=== PATIENT | male | born 1965 | race Caucasian/White ===

== ENCOUNTER 2019-01-31 12:27 | Emergency (ER) | payer MEDICAID ==
[~2019-01-31] VITALS: Ht 182.9 cm; Wt 78.5 kg
[2019-01-31 12:32] VITALS: BP 114/76
--- NOTE | 2019-01-31 23:34 | NUR ---
Patient given written and verbal discharge instructions. Patient verbalizes understanding of instructions. Patient is ambulatory with steady gait. Refuses offer of care home placement. Patient given list of available shelters in surrounding area.Pt ambulatory with a steady gait. Denies SI/HI at this time.
== END 2019-02-01 00:40 | disposition home or self-care (01) ==
LOC: ER 12:29
DX: F10.129 Alcohol abuse with intoxication, unspecified (principal); Y90.9 Presence of alcohol in blood, level not specified

== ENCOUNTER 2019-02-01 02:15 | Emergency (ER) | payer MEDICAID ==
[~2019-02-01] VITALS: Ht 182.9 cm; Wt 74.8 kg
[2019-02-01] MEDS ORDERED: HYDROMORPHONE INJ 2 MG/ML DISP.SYRIN IV ONE (03:00)
[2019-02-01 03:14] LABS: BASOPHILS # (AUTO) 0.1 /CMM (0.0-0.2); BASOPHILS % (AUTO) 0.6 % (0.0-2.0); EOSINOPHILS % (AUTO) 0.5 % (0.0-6.0); HEMATOCRIT 46 % (39-51); LYMPHOCYTES # (AUTO) 1.4 /CMM (0.8-4.8); LYMPHOCYTES % (AUTO) 16.3 % (20.0-44.0); MEAN CORPUSCULAR HGB CONC 33 g/dl (31.0-36.0); MEAN CORPUSCULAR VOLUME 94 fL (80-96); MONOCYTES # (AUTO) 0.3 /CMM (0.1-1.30); MONOCYTES % (AUTO) 3.2 % (2.0-12.0); NEUTROPHILS # (AUTO) 6.8 /CMM (1.8-8.9); NEUTROPHILS % (AUTO) 79.4 % (43.0-81.0); PLATELET COUNT (AUTO) 214 /CMM (150-450); RED BLOOD CELL COUNT(AUTO) 4.84 MIL/uL (4.5-6.0); WHITE BLOOD COUNT (AUTO) 8.5 K/uL (4.3-11.0)
[2019-02-01] MEDS ORDERED: HYDROMORPHONE 1 MG/1 ML DISP.SYRIN ONE (03:15)
[2019-02-01] MEDS ORDERED: WATER FOR INJECTION,STERILE 10 ML ONE (03:15)
[2019-02-01] MEDS ORDERED: PANTOPRAZOLE 40 MG VIAL ONE (03:15)
[2019-02-01] MEDS ORDERED: ONDANSETRON HCL/PF 4 MG/2 ML VIAL ONE (03:15)
[2019-02-01 03:21] LABS: CALCIUM, SERUM 8.1 mg/dL (8.5-10.1); CREATININE 0.8 mg/dL (0.6-1.3); POTASSIUM 3.9 mmol/L (3.5-5.1)
[2019-02-01 03:27] LABS: ALBUMIN 3.6 g/dL (3.4-5.0); BILIRUBIN,DIRECT 0.2 mg/dL (0.0-0.2); BILIRUBIN,TOTAL 0.7 mg/dL (0.2-1.0); TOTAL PROTEIN, SERUM 6.9 g/dL (6.4-8.2)
[2019-02-01] MEDS: IV NS 0.9% 1,000 ML BAG IV ONE (03:30)
[2019-02-01] MEDS: ONDANSETRON HCL/PF 4 MG/2 ML VIAL IVP ONE (03:30)
[2019-02-01] MEDS: PANTOPRAZOLE 40 MG VIAL IV ONE (03:30)
--- NOTE | 2019-02-01 03:30 | NUR ---
BIBSELF. TO ER BED 12. AAOX4. NO RESP DISTRESS NOTED. AMBULATORY. C/O ABDOMINAL PAIN - [place]ARP 01/15. HEADACHE AND NAUSEA. WAS JUST HERE AT THE ER EARLIER. AT BEDSIDE FOR EVAL.
[2019-02-01] MEDS: HYDROMORPHONE 1 MG/1 ML DISP.SYRIN IV ONE (03:32)
[2019-02-01 05:01] VITALS: BP 121/86
[2019-02-01] MEDS ORDERED: ONDANSETRON 4 MG TAB.RAPDIS ONE (05:54)
[2019-02-01] MEDS ORDERED: HYDROCODONE/APAP 5/325MG 1 EACH TABLET ONE (05:55)
[2019-02-01] MEDS: HYDROCODONE/APAP 5/325MG 1 EACH TABLET PO ONE (05:57)
--- NOTE | 2019-02-01 06:54 | NUR ---
Patient given written and verbal discharge instructions. Patient verbalizes understanding of instructions. Patient is ambulatory with steady gait. Refuses offer of retirement placement. Patient given list of available shelters in surrounding area.
== END 2019-02-01 06:57 | disposition home or self-care (01) ==
LOC: ER 02:21
DX: K85.20 Alcohol induced acute pancreatitis without necrosis or infection (principal); Y90.3 Blood alcohol level of 60-79 mg/100 ml
CPT/HCPCS: 36415; 80048; 80076; 80307; 83690; 85025; 96374; 96375; 99283; C9113; J1170; J2405; J7030; Q0162; G0480